=== PATIENT | male | born 1945 | race Caucasian/White ===

== ENCOUNTER → 2016-10-19 | Outpatient (CLI) | payer OTHER ==
[~2016-10-19] MED LIST: ACET-1138 PO; CYAN10005 PO; HYDR25TA4 PO; LEVE250T PO; LISI-729 PO; OXYSR10 PO; POTA8CAP6 PO; RXC5 PO; XRL10 PO
[2016-10-19 13:57] LABS: BASO % 0.9 %; BASO ABS # 0.06 K/uL (0-0.2); COMPLETE YES; EOS % 1.9 %; HEMATOCRIT 44.1 % (42-52); IG% 0.3 %; LYMPH % 31.3 %; MEAN CELL VOLUME 87.8 fL (80-100); MEAN CORPUSCULAR HEMOGLOBIN 29.9 pg (25-34); MEAN PLATELET VOLUME 11.7 fL (7.4-10.4); MONO % 9.3 %; NEUT % 56.3 %; PLATELET COUNT 203 K/uL (130-400); RED BLOOD COUNT 5.02 M/uL (4.7-6.1); WHITE BLOOD COUNT 7.02 K/uL (4.8-10.8)
[2016-10-19 14:25] LABS: ALT/SGPT 29 U/L (12-78); AST/SGOT 24 U/L (15-37); BLOOD UREA NITROGEN 15 mg/dl (7-18); BUN/CREATININE RATIO 15.4 (10-20); CALCIUM 9.1 mg/dl (8.5-10.1); CARBON DIOXIDE 29 mmol/L (21-32); CHLORIDE 102 mmol/L (98-107); CHOLESTEROL 165 mg/dl (0-200); GLUCOSE 86 mg/dl (70-99); POTASSIUM 3.8 mmol/L (3.5-5.1); SODIUM 137 mmol/L (136-145); URIC ACID 6.1 mg/dl (2.6-7.2)
[2016-10-19 14:32] LABS: % FREE PSA 18.8 %; FREE PSA 1.71 ng/ml; PROSTATE SPECIFIC ANTIGEN 9.09 ng/ml (0.000-4.000)
[2016-10-19 14:35] LABS: ALB/GLOB RATIO 1.2 (0.9-2); ALKALINE PHOSPHATASE 57 U/L (45-117); CHOLESTEROL/HDL RATIO 1.8; HDL CHOLESTEROL 91 mg/dl; LDL CHOLESTEROL CALCULATED 63 mg/dl; THYROID STIMULATING HORMONE 0.928 uIu/ml (0.300-4.500); TOTAL IRON BINDING CAPACITY 352 mcg/dl (250-450); TRIGLYCERIDES 57 mg/dl (0-150); VERY LOW DENSITY LIPOPROT CALC 11 mg/dl
[2016-10-19 14:59] LABS: ESTIMATED AVERAGE GLUCOSE 120 mg/dl; HA1C FLAG Normal (Normal)
== END | disposition home or self-care (01) ==
LOC: C.LAB 12:25
PROVIDERS: ATTEND Urology
DX: R73.09 Other abnormal glucose (principal); E55.9 Vitamin D deficiency, unspecified; D51.9 Vitamin B12 deficiency anemia, unspecified; E78.9 Disorder of lipoprotein metabolism, unspecified; R53.83 Other fatigue; R97.20 Elevated prostate specific antigen [PSA]

== ENCOUNTER → 2017-01-05 | Outpatient (CLI) | payer OTHER ==
[2017-01-05 15:07] LABS: BLOOD UREA NITROGEN 21 mg/dl (7-18); BUN/CREATININE RATIO 22.4 (10-20); CREATININE 0.95 mg/dl (0.60-1.40)
== END | disposition home or self-care (01) ==
LOC: C.LAB 12:55
PROVIDERS: ATTEND Urology
DX: R97.20 Elevated prostate specific antigen [PSA] (principal)

== ENCOUNTER → 2017-01-14 | Outpatient (CLI) | payer OTHER ==
[~2017-01-14] MED LIST changes: +GADAVIST IV PRN
--- NOTE | 2017-01-15 11:45 | DIAGNOSTIC IMAGING REPORT ---
PROSTATE MRI COMBO CLINICAL HISTORY: 71 years-old Male presenting with ELEVATED PSA,PT HAS SYNTHES CANULATED SCREWS. TECHNIQUE: Multisequence, multiplanar MR imaging of the prostate was performed before and after the administration of intravenous contrast. Additional postprocessing was performed on a separate [employer] workstation by the radiologist for 3-D volumetric segmentation of the prostate and contouring of region(s) of interest (CHRISTIANO) for targeting. IV contrast: 7.5 mL. COMPARISON: None. FINDINGS: Prostate: The prostate measures 5.3 x 6.6 x 5.7 cm (DynaCAD prostate boundary segmentation volume 142 mL). TURP defect with benign prostatic hyperplasia. Precontrast T1 weighted imaging demonstrates scattered foci of T1 hyperintensity near the prostatic apex possibly calcification. Seminal vesicles normal. Transition zone is diffusely T2 hypointense which limits evaluation for focal lesion. The transitional zone is diffusely heterogeneous and expanded. The peripheral zone is diffusely atrophic. Bladder: Bladder wall thickening likely indicating chronic outlet obstruction. Bowel: Visualized portion of the rectum normal. Colonic diverticulosis. Peritoneum: No free fluid in the pelvis. Nonspecific lobulated T2 hyperintense structure, 1.8 x 1.5 cm is noted adjacent to the left anterolateral aspect of the urinary bladder wall. Lymph nodes: No lymphadenopathy in the visualized portion of the pelvis. Vasculature: Iliac vessels patent. Osseous structures: Normal bone marrow signal intensity. IMPRESSION: 1. Diffusely heterogeneous, expanded and T2 hypointense transition zone limits evaluation for focal lesion. Within the limitations of the study, no focal lesion is identified. 2. TURP defect with benign prostatic hyperplasia. 3. Colonic diverticulosis incidentally noted. Electronically signed by: Wilmer Alexandre M.D. 01/15/2017 11:44 AM Dictated Date/Time: 01/14/2017 5:13 PM
== END | disposition home or self-care (01) ==
LOC: C.MRIBC 13:36
PROVIDERS: ATTEND Urology
DX: R97.20 Elevated prostate specific antigen [PSA] (principal); N40.0 Benign prostatic hyperplasia without lower urinary tract symptoms; K57.30 Diverticulosis of large intestine without perforation or abscess without bleeding

== ENCOUNTER → 2017-03-31 | Outpatient (CLI) | payer OTHER ==
[~2017-03-31] MED LIST changes: -GADAVIST IV PRN
== END | disposition home or self-care (01) ==
LOC: C.PATHSPEC 17:36
PROVIDERS: ATTEND Urology
DX: N41.9 Inflammatory disease of prostate, unspecified (principal); N40.0 Benign prostatic hyperplasia without lower urinary tract symptoms

== ENCOUNTER 2019-10-23 07:45 | Observation (INO) ==
--- NOTE | 2019-10-12 14:30 | PAT Medication Instructions ---
Medication Instructions Date of Service October 12, 2019 Home Medications Medication Instructions Recorded levetiracetam 500 mg tablet 500 mg PO BID #180 tab 08/10/19 ciprofloxacin HCl 500 mg tablet 500 mg PO BID #10 tab 10/10/19 cyanocobalamin (vitamin B-12) 1,000 mcg capsule 1,000 mcg PO DAILY potassium chloride 20 mEq tablet,extended release 20 meq PO DAILY levetiracetam 500 mg tablet 500 mg PO BID ciprofloxacin HCl 500 mg tablet 500 mg PO BID hydrochlorothiazide 25 mg PO QAM Continue as directed ciprofloxacin HCl 500 mg tablet 500 mg PO BID DO NOT take the morning of surgery cyanocobalamin (vitamin B-12) 1,000 mcg capsule 1,000 mcg PO DAILY potassium chloride 20 mEq tablet,extended release 20 meq PO DAILY hydrochlorothiazide 25 mg PO QAM Take morning of surgery With a small sip of water, OTHERWISE NOTHING TO EAT OR DRINK AFTER MIDNIGHT: levetiracetam 500 mg tablet 500 mg PO BID Take evening before surgery levetiracetam 500 mg tablet 500 mg PO BID Other Notes If you have any questions please call us at [phone] or [phone] or [phone] or [phone]
--- NOTE | 2019-10-16 10:36 | Anesthesiology Consultation ---
Date of Service October 16, 2019 Assessment & Plan (1) Encounter for pre-operative examination: COVID Status: As of 10/15 assessment, patient denies travel to endemic area, known exposure/sick contacts, or symptoms of COVID19. Patient instructed to follow strict social distancing guidelines, wear a mask in public and avoid travel for 14 days prior to surgery. Preoperative COVID19 testing to be completed Tuesday 10/17. Patient made aware to self-isolate as much as possible between COVID testing and surgery. Chart Review Chart Review: Acceptable Risk for Surgery and Patient seen in Pre Admission Testing Teaching & Discussion Instructed NPO after midnight before surgery, except medications with 15 cc of water. Medication instructions provided according to the PAT guidelines. History Surgery Operation Date: 10/23/19 09:35 Proposed Procedures p Transurethral Resection of Prostate, Prostate Biopsy Under Anesthesia - Tino Sue, DO Height/Weight Height: 5 ft 11 in Weight: 80.2 kg Allergies Allergy/AdvReac Type Severity Reaction Status Date / Time pregabalin Allergy Mild RASH Verified 10/12/19 13:26 Medications Home Medications Medication Instructions Recorded Confirmed Last Taken cyanocobalamin (vitamin B-12) 1,000 mcg PO DAILY 03/07/19 10/12/19 Unknown 1,000 mcg capsule potassium chloride 20 mEq 20 meq PO DAILY 03/07/19 10/12/19 Unknown tablet,extended release levetiracetam 500 mg tablet 500 mg PO BID #180 tab 08/10/19 10/12/19 Unknown ciprofloxacin HCl 500 mg tablet 500 mg PO BID #10 tab 10/10/19 10/12/19 Unknown hydrochlorothiazide 25 mg PO QAM 10/12/19 10/12/19 Unknown diclofenac sodium 50 mg PO DAILY PRN 10/16/19 10/16/19 Unknown lisinopril 5 mg PO QAM 10/16/19 10/16/19 Unknown simvastatin 20 mg PO DAILY 10/16/19 10/16/19 Unknown Past Medical History Medical History BPH (benign prostatic hyperplasia) Hypertension Seizure hx nighttime seizures, no problems since 2015. follows with Dr Sands Exercise / Class Metabolic Activity II 4-5 Yardwork/Stairs/Walk up hill (Denies CP, maybe mild slight SOB with 1 FOS) Past Family History Family History Mother Heart failure Father Prostate cancer Other No family history of adverse response to anesthesia Past Surgical History Surgical History History of colonoscopy History of knee surgery right ORIF (patella tendon and tibia) Past Anesthesia History No Hx of Anesthesia Complications and No Family Hx of Anesthesia Complications History of PONV No Hx of PONV and No Hx of Motion Sickness Social History Smoking Status: Current every day smoker tobacco type: cigarettes Smoking cigarettes per day: 20 Do You Dip or Chew Tobacco: No Hx Alcohol Use: Yes Alcohol type: hard liquor alcohol intake frequency: 0-2 drinks per day Hx Substance Use: No substance use type: does not use Review of Systems Pt denies any recent chest pain, shortness of breath, palpitations, cough, fever or URI. Physical Exam Vital Signs BP: 120/84 P: 81bpm SPO2: 97% RA T: 98.3 F R: 16 ENMT Mouth: + dental restorations (few caps); no chipped teeth and no loose teeth Thyromental Distance: > or= 3.5 Finger Breadths (3.5) Mallampati Class: II Neck normal visual inspection; neck extension not limited Respiratory normal respiratory effort Auscultation: + rhonchi (B/L lung bases, R >L) and + wheezes (R lung base) Cardiovascular Rate/Rhythm: regular rate and regular rhythm Heart Sounds: no murmur Vessels: no carotid bruit Extremities: no edema Testing Laboratory Results 10/16/19 10:49 10/16/19 10:49 Urine Color Yellow 10/16/19 10:49 Urine Appearance Clear (Clear) 10/16/19 10:49 Urine pH 5.5 (4.5-7.5) 10/16/19 10:49 Ur Specific [place] 1.014 (1.000-1.030) 10/16/19 10:49 Urine Protein Trace (Negative) H 10/16/19 10:49 Urine Glucose (UA) Negative (Negative) 10/16/19 10:49 Urine Ketones Negative (Negative) 10/16/19 10:49 Urine Nitrite Negative (Negative) 10/16/19 10:49 Ur Leukocyte Esterase Negative (Negative) 10/16/19 10:49 Urine WBC (Auto) 1-5 /hpf (0-5) 10/16/19 10:49 Urine RBC (Auto) 0-4 /hpf (0-4) 10/16/19 10:49 U Hyaline Cast (Auto) 1-5 /lpf (0-5) 10/16/19 10:49 U Epithel Cells (Auto) 10-20 /lpf (0-5) H 10/16/19 10:49 Urine Bacteria (Auto) Negative (Negative) 10/16/19 10:49 Electrocardiogram Date: 10/16/19 Findings: + NSR @ (70bpm) NSIVCD. No significant change from 03/09/16. Chest X-Ray Date: 10/16/19 FINDINGS: Lung volumes are normal. Lungs are clear. There is no pneumothorax or pleural effusion. Cardiac size is normal. Mediastinal contours are normal. There is no evidence for pulmonary edema. Incidental note is made of an azygos fissure. Biapical scarring is again noted. IMPRESSION: No acute cardiopulmonary findings. Other Testing CT Scan 01/02/19 IMPRESSION: 1. A 4 mm indeterminate pulmonary nodule within the left upper lobe. 2. Biapical irregular densities are nonspecific but favor scarring. These bear watching on future examinations. 3. Mild emphysema. 4. Moderate focal narrowing of the proximal right middle lobe bronchus. This also bears watching on future examinations. Overall Lung RADS Category: 2 - Benign appearance or behavior - Nodules with a very low likelihood of becoming a clinically active cancer due to size or lack of growth. Continue annual screening.
--- NOTE | 2019-10-16 11:15 | XRay Report ---
XR chest Pre-admission PA/Lat CLINICAL HISTORY: Preoperative evaluation. COMPARISON STUDY: Chest radiograph August 04, 2015. Chest CT January 02, 2019. FINDINGS: Lung volumes are normal. Lungs are clear. There is no pneumothorax or pleural effusion. Car diac size is normal. Mediastinal contours are normal. There is no evidence for pulmonary edema. Incid ental note is made of an azygos fissure. Biapical scarring is again noted. IMPRESSION: No acute cardiopulmonary findings. ACT 112: Negative or not required by law. Electronically signed by: Turner Nair M.D. 10/16/2019 11:14 AM
[2019-10-16 12:14] LABS: Basophils # (auto) 0.07 K/uL (0-0.2); Basophils % (auto) 0.9 %; Eosinophils # (auto) 0.17 K/uL (0-0.5); Eosinophils % (auto) 2.2 %; Hematocrit (blood only) 46.3 % (42-52); Hemoglobin 16.1 g/dL (14.0-18.0); Immature Granulocytes # (auto) 0.02 K/uL (0.00-0.02); Immature Granulocytes % (auto) 0.3 %; Lymphocytes # (auto) 2.01 K/uL (1.2-3.4); Mean Corpuscular Hemoglobin 30.9 pg (25-34); Mean Corpuscular Hgb Conc 34.8 g/dL (32-36); Mean Corpuscular Volume 88.9 fL (80-100); Mean Platelet Volume 11.6 fL (7.4-10.4); Monocytes # (auto) 0.68 K/uL (0.11-0.59); Monocytes % (auto) 8.8 %; Neutrophils # (auto) 4.79 K/uL (1.4-6.5); Neutrophils % (auto) 61.8 %; Platelet Count 252 K/uL (130-400); RDW Standard Deviation 45.8 fL (36.4-46.3); Red Blood Count 5.21 M/uL (4.7-6.1); White Blood Count 7.74 K/uL (4.8-10.8)
[2019-10-16 12:16] LABS: Appearance Urine Clear (Clear); Bacteria Urine Automated Negative (Negative); Bilirubin Urine Negative (Negative); Blood Urine Negative (Negative); Color Urine Yellow; Glucose Urine UA Negative (Negative); Ketones Urine Negative (Negative); Leukocyte Esterase Urine Negative (Negative); Nitrite Urine Negative (Negative); Protein Urine Trace (Negative); RBC Urine Automated 0-4 /hpf (0-4); Specific Gravity Urine 1.014 (1.000-1.030); Urobilinogen Urine Negative (Negative); pH Urine 5.5 (4.5-7.5)
[2019-10-16 12:21] LABS: BUN Creatinine Ratio 16.8 (10-20); Calcium 9.3 mg/dl (8.5-10.1); Creatinine Clr Calc Pharmacy 64.3 ml/min; Est GFR (African American) 77.6; Potassium 3.9 mmol/L (3.5-5.1)
--- NOTE | 2019-10-17 06:23 | Electrocardiogram Report ---
Test Reason : Blood Pressure : / mmHG Vent. Rate : 070 BPM Atrial Rate : 070 BPM P-R Int : 166 ms QRS Dur : 118 ms QT Int : 420 ms P-R-T Axes : 018 082 070 degrees QTc Int : 453 ms Normal sinus rhythm Non-specific intra-ventricular conduction delay Borderline ECG When compared with ECG of 09-MAR-2016 16:37, No significant change was found Confirmed by Korey Apodaca ([id number]) on 10/17/2019 6:22:43 AM Referred By: Tino Sue Confirmed By:Korey Apodaca
[~2019-10-23 07:45] MED LIST changes: -ACET-1138 PO; -CYAN10005 PO; -HYDR25TA4 PO; -LEVE250T PO; -LISI-729 PO; +LR 15ML/HR IV SCH; -OXYSR10 PO; -POTA8CAP6 PO; -RXC5 PO; -XRL10 PO
[2019-10-23] MEDS ORDERED: fentaNYL citrate 100 MCG/2 ML VIAL ONE (08:35)
[2019-10-23] MEDS ORDERED: PROPOFOL IV EMULSION 10 MG/ML 20 ML VIAL IV ONE (08:35)
[2019-10-23] MEDS ORDERED: DEXAMETHASONE SOD INJ 4 MG/ML VIAL ONE (08:35)
[2019-10-23] MEDS ORDERED: LIDOCAINE HCL 2% 2 ML VIAL/AMP(20MG/ML) INFIL ONE (08:35)
[2019-10-23] MEDS ORDERED: ONDANSETRON INJ 2 MG/ML 2 ML VIAL ONE (08:35)
--- NOTE | 2019-10-23 08:47 | History & Physical Bridge Note ---
Date of Service October 23, 2019 History & Physical Bridge Note I have examined the patient, reviewed the History & Physical and in the interval since the performance of the History & Physical I have noted the following changes of clinical significance: no changes noted
[2019-10-23] MEDS ORDERED: ATROPINE SULFATE 0.1 MG/ML 10ML SYR IV PRN (08:53)
[2019-10-23] MEDS ORDERED: ePHEDrine sulfate 50 MG/ML AMP IV PRN (08:53)
[2019-10-23] MEDS ORDERED: ONDANSETRON INJ 2 MG/ML 2 ML VIAL IV PRN (08:53)
[2019-10-23] MEDS ORDERED: MIDAZOLAM HCL 1 MG/ML 2ML VIAL ONE (09:01)
[2019-10-23] MEDS ORDERED: CEFAZOLIN 2,000 MG/15 ML IV PUSH IV ONE (09:10)
[2019-10-23] MEDS ORDERED: SODIUM CHLORIDE 0.9% INJ 10 ML VIAL ONE (11:43)
[2019-10-23] MEDS ORDERED: ePHEDrine sulfate 50 MG/ML AMP ONE (11:43)
[2019-10-23] MEDS ORDERED: BELLADONNA/OPIUM SUPP 60 MG SUPP PR ONE (11:53)
--- NOTE | 2019-10-23 12:20 | Operative Report ---
PG Post Operative Report Pre & Post Diagnosis Operation Date: 10/23/19 09:35 Pre-Op Diagnosis: Enlarged Prostate, Elevated PSA Post-Op Diagnosis: Enlarged Prostate, Elevated PSA I identified the patient and participated in the time-out.: Yes Procedure Operation Date: 10/23/19 09:35 Actual Procedures p Transurethral Resection of Prostate Transurethral resection of bladder neck mass, medium - Tino Sue, DO Surgeon Tino Sue, II, DO Incident Analyst None Estimated Blood Loss 30 Findings Consistent with Post-Op Diagnosis Extremely Large Prostate with obstruction. Approx 2.8 cm mass of tissue at bladder neck. Specimens Prostate adenoma. Drains 24Fr 3-way Catheter on CBI Anesthesia Type General Complications none Disposition Disposition: Recovery Room Indications Patient with obstruction due to prostate enlargement. Risks and benefits discussed at length. Description of Procedure Patient was consented and brought back to the operating room. Patient was placed under anesthesia in the supine position and moved to the dorsal lithotomy position. Patient was prepped and draped in the regular sterile fashion. A time out was completed. A 30degree Cystoscope was placed into the bladder and the entire bladder was examined. The UO's were identified as well as the bladder neck, trigone, dome, and the other important landmarks. The prostatic urethra and large lobes/adenoma was assessed and the veru and bladder neck identified and area/size was assessed. The resection scope was placed and the fine bipolar loop was selected. The prostate was extremely large and obstructing. Starting at the 5 and 7 o'clock positions, a channel was created from bladder neck to the veru. The prostate lateral lobes were then resected starting at 11 and 1 oclock and sweeping down. An extremely large amount of tissue was removed and multiple irrigations completed. Near the veru as well as at the anterior portion of the prostate were resected as well to better open the channel. A very irregular and edematous piece of tissue at the bladder neck was resected. During resection the deep portion appeared to be prostate tissue that had projected into the bladder off of the bladder neck. The Specimen was removed and sent for analysis. The resection bed and any bleeding areas were fulgurated/cauterized and the entire area inspected. All bleeding was controlled. The bladder was inspected a final time. The bladder was emptied and irrigated. All specimen and debris was removed. The scope was removed with the bladder partially full. A catheter was placed and balloon elevated. This was easily irrigated. The patient was cleaned, aroused from anesthesia, and transferred to the pacu in stable condition having tolerated the procedure well with no complications. I was present and participated in all aspects of the procedure. The patient will be monitored in the PACU until transferred. I attest to the content of the Intraoperative Record and any orders documented therein. Any exceptions are noted below.
[2019-10-23] MEDS: fentaNYL citrate 100 MCG/2 ML VIAL IV PRN ×8 (12:34→13:10)
[2019-10-23 13:16] LABS: Basophils # (auto) 0.02 K/uL (0-0.2); Basophils % (auto) 0.2 %; Eosinophils # (auto) 0.04 K/uL (0-0.5); Eosinophils % (auto) 0.3 %; Hematocrit (blood only) 41.9 % (42-52); Hemoglobin 14.1 g/dL (14.0-18.0); Immature Granulocytes # (auto) 0.02 K/uL (0.00-0.02); Immature Granulocytes % (auto) 0.2 %; Lymphocytes # (auto) 1.09 K/uL (1.2-3.4); Lymphocytes % (auto) 9.2 %; Mean Corpuscular Hemoglobin 30.6 pg (25-34); Mean Corpuscular Hgb Conc 33.7 g/dL (32-36); Mean Corpuscular Volume 90.9 fL (80-100); Mean Platelet Volume 10.8 fL (7.4-10.4); Monocytes % (auto) 1.7 %; Neutrophils # (auto) 10.53 K/uL (1.4-6.5); Neutrophils % (auto) 88.4 %; Platelet Count 196 K/uL (130-400); RDW Coefficient of Variation 14.3 % (11.5-14.5); RDW Standard Deviation 47.6 fL (36.4-46.3); Red Blood Count 4.61 M/uL (4.7-6.1)
--- NOTE | 2019-10-23 13:36 | Anesthesiology Progress Note ---
Date of Service October 23, 2019 Anesthesia Post Procedure Vital Signs Vital Signs: Temp Pulse Resp BP Pulse Ox 10/23/19 13:15 63 10 L 111/65 96 10/23/19 13:05 62 10 L 127/67 95 10/23/19 12:55 67 10 L 119/65 96 10/23/19 12:45 71 14 116/62 97 10/23/19 12:35 73 14 133/73 98 10/23/19 12:25 96.8 F L 19 139/81 96 Pain Intensity Penis: Pain Intensity: 3 Transfer of Care Handoff Completed per policy Notes Mental Status: alert / awake / arousable and participated in evaluation Patient Amnestic to Procedure: Yes Nausea / Vomiting: adequately controlled Pain: adequately controlled Airway Patency, RR, SpO2: stable & adequate BP & HR: stable & adequate Hydration State: stable & adequate Anesthetic Complications: no major complications apparent and Pt Satisfied with anesthetic care
[2019-10-23 13:44] LABS: BUN Creatinine Ratio 13.7 (10-20); Calcium 7.2 mg/dl (8.5-10.1); Creatinine Clr Calc Pharmacy 75.3 ml/min; Est GFR (African American) 94.1; Est GFR (Non-African American) 81.2; Potassium 3.7 mmol/L (3.5-5.1)
[2019-10-23] MEDS ORDERED: OXYCODONE HCL IR 5 MG TAB (IMMEDIATE RELEASE) PO PRN (14:09)
[2019-10-23] MEDS ORDERED: MoRPHine SULFATE 4 MG/ML 1 ML CARP\\VIAL IV PRN (14:09)
[2019-10-23] MEDS ORDERED: DICLOFENAC SODIUM 25 MG TABDR PO PRN (14:42)
[2019-10-23] MEDS: SODIUM CHLORIDE 0.9% 1000ML 1,000 ML IV SCH ×2 (14:53→23:14)
[2019-10-23] MEDS: CEFAZOLIN 2000MG 2,000 MG/15 ML SYR IV SCH (17:29)
[2019-10-23] MEDS: levETIRAcetam 500 MG TAB PO SCH (21:23)
[2019-10-24] MEDS: CEFAZOLIN 2000MG 2,000 MG/15 ML SYR IV SCH ×2 (02:09→08:54)
[2019-10-24] MEDS: levETIRAcetam 500 MG TAB PO SCH (07:10)
[2019-10-24] MEDS: SODIUM CHLORIDE 0.9% 1000ML 1,000 ML IV SCH (08:54)
[2019-10-24] MEDS ORDERED: CYANOCOBALAMIN 500 MCG TABLET (VITAMIN B-12) PO SCH (09:00)
[2019-10-24] MEDS ORDERED: SIMVASTATIN 20 MG TAB PO SCH (09:00)
[2019-10-24] MEDS ORDERED: POTASSIUM CHLORIDE 20 MEQ TABCR PO SCH (09:00)
--- NOTE | 2019-10-24 11:17 | Urology Progress Note ---
Date of Service October 24, 2019 Assessment & Plan (1) Prostate enlargement: Assessment Post TURP Patient doing well Patient is stable for discharge with his Bella catheter His prescriptions have been sent to his pharmacy Follow-up with Dr. Sue as scheduled Subjective Postop day 1 from TURP Patient is afebrile vital signs are stable. He has no complaints. Urine clear with minimal CBI Bella draining well Patient anxious to go home Physical Exam Physical Exam: Well-developed well-nourished white male in no acute distress Neurologically alert and oriented x3 Abdomen benign Extremities without Calf pain or tenderness Results & Data Vital Signs (Past 12 Hours) Vital Signs Temp Pulse Resp BP Pulse Ox 10/24/19 07:49 36.5 C 56 L 18 110/66 95 10/24/19 04:30 37 C 67 18 118/68 96 10/23/19 23:23 36.7 C 68 16 106/60 96 PG Care Time/CCT Total # of Minutes Spent Total Time Spent with Patient: Total time spent is greater than 50% in coordination of care (as documented) at patient's floor/unit and/or counseling patient: Coding Level of Care Code None Diagnoses Prostate enlargement N40.0
--- NOTE | 2019-10-26 06:58 | Discharge Summary ---
Date of Service October 26, 2019 Admission HPI Per Admitting Provider See H&P Admission Exam Per Admitting Provider See H&P Principal Diagnosis BPH with obstruction Discharge Exam General: Alert in no acute distress. HEENT: Normocephalic Atraumatic. Inspection normal. Psychologic: Normal affect. Skin: [place] and Dry. No rashes or visible lesions. Abdomen: Soft Non-distended. No rebound or guarding. Discharge Data Allergies Allergy/AdvReac Type Severity Reaction Status Date / Time pregabalin Allergy Mild RASH Verified 10/23/19 08:13 Procedures Performed Operation Date: 10/23/19 09:35 Actual Procedures p Transurethral Resection of Prostate(Not Applicable) - Tino Sue, Hospital Course (1) Prostate enlargement: Assessment Post TURP Patient doing well Patient is stable for discharge with his Bella catheter His prescriptions have been sent to his pharmacy Follow-up with Dr. Sue as scheduled Total Time Total Time Spent Total Time Spent (In Minutes): 10 minutes Total Time Includes: Examination of the Patient, Discharge Planning, Medication Reconciliation and Communication With Other Providers Discharge Plan Discharge Items Patient Disposition: Home - Self-Care Reason For Visit: Enlarged Prostate, Elevated PSA Discharge Diagnosis: Same Activity: Resume your previous activity Lifting: No more than 50 pounds Non-emergency contact: Urologist Call non-emergency contact if: you have any medication questions, your symptoms worsen, your pain is not controlled, your pain is worsening, your pain is unusual for you, your pain is concerning for you, you have a fever and your temperature is above 101.5 Follow-up/Referrals: Tino Ro MD [Primary Care Provider] - Diet: Regular Addtl Attending Provider Instructions: Home with catheter. May have blood in urine. May have discomfort. Call if any fevers or chills. Pending Studies at Discharge: No Stand-Alone Forms: My [facility] [employer] Medications and DC Order Prescriptions: New phenazopyridine [Pyridium] 200 mg tablet 200 mg PO Q8H PRN (Reason: pain) Qty: 10 RF: 0 ciprofloxacin HCl [Cipro] 500 mg tablet 500 mg PO Q12H Qty: 6 RF: 0 tamsulosin 0.4 mg capsule 0.4 mg PO HS Qty: 30 RF: 0 Continued levetiracetam 500 mg tablet 500 mg PO BID Qty: 180 RF: 1 cyanocobalamin (vitamin B-12) 1,000 mcg capsule 1,000 mcg PO DAILY RF: 0 potassium chloride 20 mEq tablet extended release 20 meq PO DAILY RF: 0 hydrochlorothiazide 25 mg Tablet 25 mg PO QAM RF: 0 simvastatin 20 mg Tablet 20 mg PO DAILY RF: 0 lisinopril 5 mg Tablet 5 mg PO QAM RF: 0 diclofenac sodium 50 mg Tablet,Delayed Release (Dr/Ec) 50 mg PO DAILY PRN (Reason: Pain) RF: 0 Discharge Orders: Discharge Order (Routine); Ordered 10/24/19 Ordered By: Valente Bullock/Other Patient Handouts: Emptying and Cleaning Your Urinary Catheter Bag, Discharge Instructions Caring for Your Leg Bag Admission Data Admit Date/Time: 10/23/19 12:35 Attending Provider: Tino Sue Admit Provider: Tino Sue Primary Care Provider: Tino Ro Other Interventions: Discharge Summary Assessment (RN) Last Done: 10/24/19 11:19 DC Date/Time DO NOT enter until pt leaves facility: 10/24/19 11:50 Coding Level of Care Code D/C Day Management <30 mins Diagnoses Prostate enlargement N40.0
== END 2019-10-24 11:50 | disposition home or self-care (01) ==
LOC: 3N 07:45 → ASU 07:45
DX: I10 Essential (primary) hypertension; R31.0 Gross hematuria; R56.9 Unspecified convulsions; Z88.8 Allergy status to other drugs, medicaments and biological substances; R97.20 Elevated prostate specific antigen [PSA]; N40.1 Benign prostatic hyperplasia with lower urinary tract symptoms; Z79.899 Other long term (current) drug therapy